=== PATIENT | male | born 1975 | race Caucasian/White ===

== ENCOUNTER 2023-01-16 18:57 | Emergency (ER) | payer OTHER ==
[2023-01-16] MEDS ORDERED: SODIUM CHLORIDE 0.9% 1000 ML INFUS.BAG IV ONE (19:14)
[2023-01-16 19:26] VITALS: BMI 14.9
[2023-01-16] MEDS ORDERED: DEXTROSE 50%-WATER 25 GM/50 ML DISP.SYRIN ONE (19:38)
[2023-01-16] MEDS ORDERED: DEXTROSE 5%-NORMAL SALINE 1,000 ML IV SCH (19:45)
[2023-01-16 20:30] LABS: HEMATOCRIT 21.6 % (35.4-49); MCH 34.5 pg (25.7-33.7); MCHC 32.5 g/dl (32.0-35.9); MEAN CELL VOLUME 106.2 fl (80-96); MEAN PLT VOLUME 10.9 fl (7.5-11.1); PLATELET COUNT 66 10^3/uL (134-434); RBC 2.03 M/mm3 (4.00-5.60); RDW 16.7 % (11.9-15.9); WHITE BLOOD COUNT 17.8 K/mm3 (4.0-10.0)
[2023-01-16 20:40] LABS: INR 2.59 (0.83-1.09); PROTHROMBIN TIME (PATIENT) 29.8 SEC (9.7-13.0)
[2023-01-16 20:42] LABS: ACTIVATED PTT 43.9 SECONDS (25.2-36.5)
[2023-01-16 20:54] LABS: CHLORIDE 76 mmol/L (98-107); SODIUM 124 mmol/L (136-145)
[2023-01-16 20:54] LABS: VENOUS BASE EXCESS -20.9 mmol/L (-2-2); VENOUS O2 SATURATION 74.4 % (70-80)
[2023-01-16 20:57] LABS: ALBUMIN 2.1 g/dl (3.4-5.0); BLOOD UREA NITROGEN 23.2 mg/dL (7-18); CO2 8 mmol/L (21-32); MAGNESIUM 2.7 mg/dL (1.8-2.4)
[2023-01-16 20:59] LABS: VENOUS PH 7.061 (7.310-7.410)
[2023-01-16 21:00] LABS: CREATININE 2.8 mg/dL (0.55-1.3); SGPT/ALT 748 U/L (13-61)
[2023-01-16 21:03] LABS: ALK PHOS 177 U/L (45-117)
[2023-01-16 21:05] LABS: LACTIC ACID 25.9 mmol/L (0.4-2.0)
[2023-01-16 21:26] LABS: ANION GAP 39 MMOL/L (8-16); BILIRUBIN,DIRECT 20.9 mg/dL (0.0-0.2); BILIRUBIN,TOTAL 25.7 mg/dL (0.2-1); GLUCOSE,RANDOM 13 mg/dL (74-106); PHOSPHOROUS 8.3 mg/dL (2.5-4.9); SGOT/AST 6215 U/L (15-37); TOT PROT 5.1 g/dl (6.4-8.2)
[2023-01-16 21:34] LABS: ANISOCYTOSIS 2+; MACROCYTOSIS 2+; TARGET CELLS 1+
[2023-01-16 22:11] LABS: CHLORIDE 79 mmol/L (98-107); SODIUM 123 mmol/L (136-145)
[2023-01-16 22:13] LABS: CO2 8 mmol/L (21-32); GLUCOSE,RANDOM 185 mg/dL (74-106)
[2023-01-16 22:14] LABS: ALBUMIN 1.8 g/dl (3.4-5.0); BLOOD UREA NITROGEN 22.6 mg/dL (7-18)
[2023-01-16 22:16] LABS: CREATININE 2.9 mg/dL (0.55-1.3); SGPT/ALT 789 U/L (13-61)
[2023-01-16 22:19] LABS: ALK PHOS 152 U/L (45-117)
[2023-01-16 22:36] LABS: LACTIC ACID 26.4 mmol/L (0.4-2.0)
[2023-01-16] MEDS ORDERED: RAPID SEQUENCE INTUBATION KIT NR ONE (22:44)
[2023-01-16] MEDS ORDERED: NOREPINEPHRINE BITARTRATE 4 MG/4 ML ML IV ONE (22:47)
[2023-01-16] MEDS ORDERED: OCTREOTIDE ACETATE 100 MCG/1 ML ONE (22:48)
[2023-01-16] MEDS ORDERED: PANTOPRAZOLE SODIUM 40 MG VIAL ONE (22:48)
[2023-01-16 22:51] LABS: ANION GAP 36 MMOL/L (8-16); BILIRUBIN,TOTAL 24.1 mg/dL (0.2-1); CALCIUM 6.5 mg/dL (8.5-10.1); LIPASE 2746 U/L (73-393); TOT PROT 4.5 g/dl (6.4-8.2)
[2023-01-16] MEDS ORDERED: NOREPINEPHRINE BITARTRATE/D5W 8 MG/250 ML BAG IVPB ONE (22:54)
[2023-01-16] MEDS ORDERED: EPINEPHrine 1:10,000 (P-F SYR) 1 MG/10 ML DISP.SYRIN ONE (23:04)
[2023-01-16] MEDS ORDERED: NOREPINEPHRINE BITARTRATE 4,000 MCG in DEXTROSE 5%-WATER - 496 ML IV SCH (23:30)
[2023-01-16] MEDS ORDERED: VASOPRESSIN 20 UNITS/ML VIAL IV ONE (23:33)
[2023-01-16] MEDS ORDERED: VASOPRESSIN 40 UNITS/100 ML BAG IV SCH (23:45)
[2023-01-17] MEDS ORDERED: NOREPINEPHRINE BITARTRATE 4 MG/4 ML ML IV ONE (00:06)
[2023-01-17] MEDS ORDERED: NOREPINEPHRINE BITARTRATE/D5W 8 MG/250 ML BAG IVPB ONE (00:06)
[2023-01-17 00:40] LABS: SGOT/AST 6821 U/L (15-37)
[2023-01-17 00:47] VITALS: RESP 20; TEMP 93.4
[2023-01-17 00:52] VITALS: PULSE 107
[2023-01-17 00:53] VITALS: BP 61/23
== END 2023-01-16 23:52 | disposition short-term general hospital (02) ==
LOC: JER 18:57
PROC: 3E033NZ Introduction of Analgesics, Hypnotics, Sedatives into Peripheral Vein, Percutaneous Approach (ICD-10-PCS; principal; 2023-01-16)
PROC: 3E033GC Introduction of Other Therapeutic Substance into Peripheral Vein, Percutaneous Approach (ICD-10-PCS; 2023-01-16)
DX: R41.82 Altered mental status, unspecified (principal); E87.20 Acidosis, unspecified; N17.9 Acute kidney failure, unspecified; D64.9 Anemia, unspecified; D69.6 Thrombocytopenia, unspecified; K76.82 Hepatic encephalopathy; K72.90 Hepatic failure, unspecified without coma; F10.929 Alcohol use, unspecified with intoxication, unspecified; J96.90 Respiratory failure, unspecified, unspecified whether with hypoxia or hypercapnia; Y90.9 Presence of alcohol in blood, level not specified; Z20.822 Contact with and (suspected) exposure to COVID-19
CPT/HCPCS: 0241U-QW; 36415; 36430; 71045-TC-FY; 80053; 80307; 82140; 82248; 82272; 82550; 82553; 82803; 82962; 83605; 83690; 83735; 84100; 84484; 85025; 85610; 85730; 86850; 86900; 86901; 86922; 87040; 93005; 93010; 99291; 99292; J3490; P9058